=== PATIENT | male | born 1935 | race Caucasian/White ===

== ENCOUNTER 2021-11-16 11:41 | Emergency (ER) | payer MEDICARE ==
[~2021-11-16] VITALS: Ht 180.3 cm; Wt 82.1 kg
[2021-11-16] MEDS ORDERED: AMIODARONE HCL400 MG PO (11:56)
[2021-11-16] MEDS ORDERED: ELIQUIS5 MG PO (11:56)
[2021-11-16] MEDS ORDERED: LISINOPRIL20 MG PO (11:57)
[2021-11-16] MEDS ORDERED: LIPITOR40 MG PO (11:57)
[2021-11-16] MEDS ORDERED: CARVEDILOL25 MG PO (11:57)
[2021-11-16] MEDS ORDERED: LEVO-T50 MCG PO (11:57)
[2021-11-16] MEDS ORDERED: ASA81BEC PO (11:57)
[2021-11-16] MEDS ORDERED: PROSCAR 5MG TABL5 M1 PO (11:57)
[2021-11-16] MEDS ORDERED: LORAZEPAM 0.50.5 MG PO (11:58)
[2021-11-16] MEDS ORDERED: PROTONIX 20 MG20 MG PO (11:58)
[2021-11-16] MEDS ORDERED: TERAZOSIN HCL5 MG PO (11:58)
[2021-11-16] MEDS ORDERED: NASONEX17 GM NASAL (12:20)
[2021-11-16 13:40] VITALS: BP 154/79
== END 2021-11-16 13:40 | disposition home or self-care (01) ==
LOC: M.ERS 11:41
DX: U07.1 COVID-19 (principal); J30.9 Allergic rhinitis, unspecified; I10 Essential (primary) hypertension; Z79.899 Other long term (current) drug therapy